=== PATIENT | male | born 2000 | race Caucasian/White ===

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

== ENCOUNTER → 2021-04-02 08:22 | Outpatient (BNVA) | payer MEDICAID, SELFPAY | PROVIDERS: PCP Family Medicine; Visit Provider Psychiatry & Neurology Psychiatry | DX: F84.0 Autistic disorder (principal); F90.2 Attention-deficit hyperactivity disorder, combined type; Z79.899 Other long term (current) drug therapy | CPT/HCPCS: 99213 ==

== ENCOUNTER 2021-05-30 06:00 | Outpatient (RCR) | payer MEDICAID, SELFPAY | END 2021-05-31 23:59 | disposition home or self-care (01) | LOC: SST 06:00 | PROVIDERS: PCP Family Medicine; Referring Provider Family Medicine; Visit Provider Family Medicine | DX: R47.9 Unspecified speech disturbances (principal) | CPT/HCPCS: 92523 ==

== ENCOUNTER → 2021-07-02 07:33 | Outpatient (BNVA) | payer MEDICAID, SELFPAY | PROVIDERS: PCP Family Medicine; Visit Provider Psychiatry & Neurology Psychiatry | DX: F84.0 Autistic disorder (principal); F90.2 Attention-deficit hyperactivity disorder, combined type | CPT/HCPCS: 99213 ==

== ENCOUNTER 2021-09-25 06:00 | Outpatient (RCR) | payer MEDICAID, SELFPAY | END 2021-09-28 23:59 | disposition home or self-care (01) | LOC: SST 06:00 | PROVIDERS: PCP Family Medicine; Referring Provider Family Medicine; Visit Provider Family Medicine | DX: R47.9 Unspecified speech disturbances (principal) | CPT/HCPCS: 92507 ==

== ENCOUNTER 2021-12-07 18:07 | Emergency (ER) | payer MEDICAID, SELFPAY ==
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
[2021-12-07 18:17] VITALS: BP 140/78; PULSE 112; RESP 18; TEMP 36.6; O2SAT 96; BMI 18.3
[2021-12-07] MEDS: bacitracin ointment Pkt 1 EACH TOPICAL (19:21)
== END 2021-12-07 19:30 | disposition home or self-care (01) ==
PROVIDERS: Emergency Provider Nurse Practitioner Family; PCP Family Medicine
DX: S90.812A Abrasion, left foot, initial encounter (principal); S90.811A Abrasion, right foot, initial encounter; X58.XXXA Exposure to other specified factors, initial encounter; F84.0 Autistic disorder; Z91.83 Wandering in diseases classified elsewhere
CPT/HCPCS: 99283

== ENCOUNTER → 2022-06-10 14:32 | Outpatient (BNVA) | payer MEDICAID, SELFPAY | PROVIDERS: PCP Family Medicine; Visit Provider Psychiatry & Neurology Psychiatry | DX: Z79.899 Other long term (current) drug therapy (principal); F84.0 Autistic disorder; F90.2 Attention-deficit hyperactivity disorder, combined type | CPT/HCPCS: 80061; 83036 ==

== ENCOUNTER → 2023-06-09 14:28 | Outpatient (BNVA) | payer MEDICAID, SELFPAY | PROVIDERS: PCP Family Medicine; Visit Provider Psychiatry & Neurology Psychiatry | DX: Z79.899 Other long term (current) drug therapy (principal) | CPT/HCPCS: 80061; 83036 ==

== ENCOUNTER → 2024-06-28 10:38 | Outpatient (BNVA) | payer OTHER, SELFPAY | PROVIDERS: PCP Family Medicine; Visit Provider Psychiatry & Neurology Psychiatry | DX: Z79.899 Other long term (current) drug therapy (principal) | CPT/HCPCS: 80061; 83036 ==

== ENCOUNTER 2024-07-14 17:05 | Emergency (ER) | payer MEDICAID, SELFPAY ==
[2024-07-14 17:07] VITALS: BP 139/81; PULSE 108; RESP 18; TEMP 36.8; O2SAT 98; BMI 19.6
--- NOTE | 2024-07-14 17:30 | XRR_ITS ---
PROCEDURE INFORMATION: Exam: XR Chest Exam date and time: 07/14/2024 5:33 PM Age: 24 years old Clinical indication: Other: Siezure; Additional info: Seizure TECHNIQUE: Imaging protocol: Radiologic exam of the chest. Views: 1 view. COMPARISON: No relevant prior studies available. FINDINGS: Lungs: Unremarkable. No consolidation. Pleural spaces: Unremarkable. No pleural effusion. No pneumothorax. Heart/Mediastinum: Unremarkable. No cardiomegaly. Bones/joints: Unremarkable. XR/XR chest 1V portable [id number] IMPRESSION: No acute findings.
--- NOTE | 2024-07-14 17:31 | W.ED.SEIZURE ---
HPI - Seizure General: Chief Complaint: Seizure Stated Complaint: seizure Time Seen by Provider: 07/14/24 17:22 History of Present Illness: HPI Narrative: Patient brought in by EMS with complaints of seizure activity. This was what appeared to be a witnessed seizure lasted about 30 seconds to a minute. Patient was walking across the room and then fell into the couch where he had convulsions for about 30 seconds to 1 minute and then was laid down to the floor where he was postictal. Patient is autistic and nonverbal but staff said he responded slower than normal. Patient does point to midshaft left forearm when asked if he has any pain. Patient does not have any history of seizures no medication changes or fevers. Patient is back to his baseline at this time. Related Data Home Medications ?Medication ?Instructions ?Recorded ?Confirmed docusate sodium 100 mg capsule 200 mg PO DAILY@0800 08/04/19 06/28/24 (Colace) dextromethorphan tannate 30 mg/5 30 mg PO DAILY PRN 10/29/22 06/28/24 mL oral suspension Previous Rx's ?Medication ?Instructions ?Recorded mirtazapine 30 mg tablet See Rx Instructions .Route 02/16/24 .COMPLEX #30 tabs olanzapine 15 mg tablet 15 mg PO BID #60 tabs 03/09/24 clonidine HCl 0.1 mg tablet See Rx Instructions .Route 03/24/24 .COMPLEX #90 tabs Allergies Allergy/AdvReac Type Severity Reaction Status Date / Time No Known Allergies Allergy Verified 06/28/24 10:18 Review of Systems General: Reports: 10 or more systems reviewed and unremarkable except in HPI and below PFSH ED PFSH: Medical History Psychiatric care Attention-deficit hyperactivity disorder, combined type Social History Smoking and tobacco/nicotine status: never used tobacco/nicotine Second hand smoke exposure: No Alcohol intake: never Physical Exam Const: COMMON NORMALS: no acute distress, average body habitus, healthy appearing, alert and well nourished HENMT: COMMON NORMALS: normocephalic, atraumatic, hearing grossly normal bilaterally, external ears normal and Normal external nose present HEAD & SCALP: normocephalic and atraumatic NOSE: Normal external nose present EXTERNAL EAR: Yes external ears normal Eye: COMMON NORMALS: Equal, round and reactive pupils present, EOMs intact bilaterally, conjunctivae normal and no scleral icterus CONJUNCTIVA: Yes conjunctivae normal PUPIL: Yes Equal, round and reactive pupils present Neck/C-Spine: COMMON NORMALS: full ROM, no lymphadenopathy, supple, no meningeal signs, no JVD and Thyroid normal THYROID: Thyroid normal Chest: COMMONS NORMALS: normal inspection of the chest and normal palpation of entire chest wall Resp: COMMON NORMALS: normal respiratory effort, No retractions, No use of accessory muscles and clear to auscultation bilaterally AUSCULTATION: clear to auscultation bilaterally Cardio: COMMON NORMALS: no JVD, regular rhythm, S1 normal heart sound present, S2 normal heart sound present, No gallops present (Cardio), No clicks present (Cardio), No murmurs present (Cardio) and No rub (Cardio); negative for regular rate (Mildly tachycardic) RATE: abnormal rate (Mildly tachycardic) RHYTHM: regular rhythm HEART SOUNDS: S1 normal heart sound present and S2 normal heart sound present GI: COMMON NORMALS: Normal to inspection, nondistended, normoactive bowel sounds present, Soft to palpation, non-tender, No hepatosplenomegaly present and no masses PALPATION: Yes Soft to palpation and Yes No hepatosplenomegaly present Extremity: NARRATIVE EXTREMITY EXAM: Patient points to the midshaft left forearm when asked if he has any pain. Neuro: SENSORIUM/ORIENTATION: Yes alert MENINGEAL SIGNS: Yes no meningeal signs Course Vital Signs: Vital signs: Vital Signs Temperature 98.3 F 07/14/24 17:07 Pulse Rate 85 07/14/24 18:53 Respiratory Rate 18 07/14/24 17:07 Blood Pressure 130/61 07/14/24 18:53 Pulse Oximetry 98 07/14/24 18:53 Oxygen Delivery Me thod Room Air 07/14/24 17:07 MDM - Seizure MDM Narrative Medical decision making narrative: Patient's lab work included CBC CMP influenza COVID RSV all essentially unremarkable, prolactin was elevated at 30.7, chest x-ray and forearm x-ray showed no acute findings. These results was discussed with patient's care workers and have to be consistent with seizure. We will for the patient to neurology for further evaluation and treatment. We will discharge patient from the ER. Medical Records Attestation: I reviewed the patient's medical records. Lab Data Attestation: I reviewed the patient's lab results. 07/14/24 18:53 07/14/24 18:53 Labs: Radiology Impressions Chest X-Ray 07/14/24 17:30 IMPRESSION: No acute findings. Forearm X-Ray 07/14/24 17:32 IMPRESSION: Nonacute finding. Laboratory Results WBC 11.88 10^3/uL (3.29-11.43) H 07/14/24 18:53 RBC 5.44 10^6/uL (3.85-5.65) 07/14/24 18:53 Hgb 15.80 g/dL (11.27-16.99) 07/14/24 18:53 Hct 47.4 % (37-53) 07/14/24 18:53 MCV 87.1 fl (82-101) 07/14/24 18:53 MCH 29.0 pg (27-33) 07/14/24 18:53 MCHC 33.3 g/dL (30-55) 07/14/24 18:53 RDW 11.8 % (12.1-15.1) L 07/14/24 18:53 Plt Count 287 10^3/cmm (157-399) 07/14/24 18:53 MPV 9.1 fL (7.4-10.4) 07/14/24 18:53 Neut % (Auto) 77.4 % 07/14/24 18:53 Lymph % (Auto) 12.1 % 07/14/24 18:53 [place] % (Auto) 9.0 % 07/14/24 18:53 Eos % (Auto) 0.8 % 07/14/24 18:53 Baso % (Auto) 0.3 % 07/14/24 18:53 Neut # (Auto) 9.19 10^3/uL (1.8-7.7) H 07/14/24 18:53 Lymph # (Auto) 1.4 10^3/uL (0.8-4.8) 07/14/24 18:53 [place] # (Auto) 1.1 10^3/uL (0.2-0.9) H 07/14/24 18:53 Eos # (Auto) 0.1 10^3/uL (0.0-0.8) 07/14/24 18:53 Baso # (Auto) 0.0 10^3/uL (0.0-0.1) 07/14/24 18:53 Nucleated RBC % (auto) 0 % 07/14/24 18:53 Nucleated RBCs # 0.0 /100WBC 07/14/24 18:53 Sodium 141 mmol/L (136-145) 07/14/24 18:53 Potassium 4.1 mmol/L (3.5-5.1) 07/14/24 18:53 Chloride 108 mmol/L (98-107) H 07/14/24 18:53 Carbon Dioxide 24 mmol/L (22-29) 07/14/24 18:53 Anion Gap 13.1 (5-19) 07/14/24 18:53 BUN 13 mg/dL (6-20) 07/14/24 18:53 Creatinine 1.0 mg/dL (0.7-1.2) 07/14/24 18:53 GFR Calculation 92.6 mL/min (90-130) 07/14/24 18:53 Glucose 82 mg/dL (65-115) 07/14/24 18:53 Calculated Osmolality 291 mOsm/kg (285-295) 07/14/24 18:53 Calcium 9.3 mg/dL (8.5-10.5) 07/14/24 18:53 Total Bilirubin 0.3 mg/dL (0.15-1.2) 07/14/24 18:53 AST 16 U/L (0-40) 07/14/24 18:53 ALT 23 U/L (0-41) 07/14/24 18:53 Alkaline Phosphatase 87 U/L (40-130) 07/14/24 18:53 Creatine Kinase 105 U/L (39-308) 07/14/24 18:53 Total Protein 6.5 g/dL (6.6-8.7) L 07/14/24 18:53 Albumin 4.5 g/dL (3.5-5.2) 07/14/24 18:53 Globulin 2.0 g/dL (1.3-4.6) 07/14/24 18:53 Prolactin 30.74 ng/mL (4.0-15.2) H 07/14/24 18:53 Coronavirus (PCR) Negative (Negative) 07/14/24 18:48 Influenza A (PCR) Negative (Negative) 07/14/24 18:48 Influenza Type B (PCR) Negative (Negative) 07/14/24 18:48 RSV (PCR) Negative (Negative) 07/14/24 18:48 All radiology interpretation(s) finalized by discharge Discharge Plan Discharge Patient Disposition: Home Clinical Impression: New onset seizure Condition: Stable Prescriptions: No Action docusate sodium [Colace] 100 mg capsule 200 mg PO DAILY@0800 dextromethorphan tannate 30 mg/5 mL suspension 30 mg PO DAILY PRN mirtazapine 30 mg tablet See Rx Instructions .ROUTE .COMPLEX Qty: 30 11RF Dose Instruction: TAKE ONE TABLET BY MOUTH EVERY DAY Rx Instructions: TAKE ONE TABLET BY MOUTH EVERY DAY olanzapine 15 mg tablet 15 mg PO BID Qty: 60 5RF clonidine HCl 0.1 mg tablet See Rx Instructions .ROUTE .COMPLEX Qty: 90 11RF Dose Instruction: TAKE ONE TABLET BY MOUTH THREE TIMES DAILY FOR ADHD Rx Instructions: TAKE ONE TABLET BY MOUTH THREE TIMES DAILY FOR ADHD Discharge Orders: Discharge ED (Routine); Ordered 07/14/24 Ordered By: Rocael Thomas Referrals: Alpesh Galloway MD [Primary Care Provider] - 1 week Patient Instructions: New-Onset Seizure in Adults (ED) Activity Restrictions/Additional Instructions: Your evaluation ER was essentially unremarkable other than an elevated prolactin. This can be sometimes linked with seizure activity. He had been referred to neurology for follow-up for further evaluation and treatment. sugar cane farm manager should be calling you within the next several business days to arrange this appointment. Otherwise follow-up with your family practice doctor within the next 7 days for further evaluation and treatment. Print Language: [place] Coding Level of Care Code ED Electronic Equipment Trades Worker for Maryuri Cooper
--- NOTE | 2024-07-14 17:32 | XRR_ITS ---
PROCEDURE INFORMATION: Exam: XR Left Forearm Exam date and time: 07/14/2024 5:33 PM Age: 24 years old Clinical indication: Injury or trauma; Fall; Blunt trauma (contusions or hematomas); Arm, lower; Left; Additional info: Fall, pain TECHNIQUE: Imaging protocol: Radiologic exam of the left forearm. Views: 2 views. COMPARISON: No relevant prior studies available. FINDINGS: Bones/joints: There is a prominent exostosis arising from the anterior distal radial diaphysis. No fracture or other acute abnormality. Visualized joint spaces are normal. Soft tissues: Normal. XR/XR forearm LT 2V [id number] IMPRESSION: Nonacute finding.
--- NOTE | 2024-07-14 17:57 | ECG_ITS ---
[facility] Date: 2024-07-14 Pat Name: Andrea Laguerre Department: Room: Gender: Male Thrill Performer: : 2000 Requested By: Rocael Thomas Order Number: [id number] Caridad MD: DANYA CORDERO Measurements Intervals [place] Rate: 81 P: 118 NM: 154 QRS: 135 QRSD: 100 T: 115 QT: 337 QTc: 392 Interpretive Statements SINUS RHYTHM WITH SINUS ARRHYTHMIA ARM LEADS REVERSED [INVERTED P AND QRS IN I] No previous ECG available for comparison Electronically Signed On 07-16-2024 19:29:03 VEIN ACCESS TECHNICIAN by DANYA CORDERO [email or web address]
[2024-07-14 18:53] VITALS: BP 130/61; PULSE 85; O2SAT 98
[2024-07-14 19:07] LABS: Basophils % 0.3 %; Eosinophils # 0.1 10^3/uL (0.0-0.8); Eosinophils % 0.8 %; Hematocrit 47.4 % (37-53); Lymphocytes # 1.4 10^3/uL (0.8-4.8); Lymphocytes % 12.1 %; Mean Corpuscular HGB Conc 33.3 g/dL (30-55); Mean Corpuscular Volume 87.1 fl (82-101); Mean Platelet Volume 9.1 fL (7.4-10.4); Monocytes # 1.1 10^3/uL (0.2-0.9); Neutrophils # 9.19 10^3/uL (1.8-7.7); Neutrophils % 77.4 %; Nucleated Red Blood Cells % 0 %; Platelet Count 287 10^3/cmm (157-399); Red Blood Count 5.44 10^6/uL (3.85-5.65); Red Cell Distribution Width 11.8 % (12.1-15.1); White Blood Count 11.88 10^3/uL (3.29-11.43)
[2024-07-14 19:29] LABS: Influenza A NEGATIVE (Negative); Influenza B NEGATIVE (Negative); Respiratory Syncytial Virus Ce NEGATIVE (Negative); SARS-CoV-2 PCR NEGATIVE (Negative)
[2024-07-14 19:38] LABS: Alanine Aminotransferase 23 U/L (0-41); Albumin Level 4.5 g/dL (3.5-5.2); Alkaline Phosphatase 87 U/L (40-130); Anion Gap 13.1 (5-19); Aspartate Amino Transferase 16 U/L (0-40); Blood Urea Nitrogen 13 mg/dL (6-20); Calcium 9.3 mg/dL (8.5-10.5); Carbon Dioxide 24 mmol/L (22-29); Chloride 108 mmol/L (98-107); Creatine Phosphokinase 105 U/L (39-308); Creatinine Clr Calc Pharmacy 118.4112; Glomerular Filtration Rate 92.6 mL/min (90-130); Glucose 82 mg/dL (65-115); Osmolality Calculated 291 mOsm/kg (285-295); Potassium 4.1 mmol/L (3.5-5.1); Prolactin 30.74 ng/mL (4.0-15.2); Sodium 141 mmol/L (136-145); Total Bilirubin 0.3 mg/dL (0.15-1.2); Total Protein 6.5 g/dL (6.6-8.7)
[2024-07-14 19:59] LABS: Bilirubin Urine Negative (Negative); Blood Urine Negative (Negative); Glucose Urine UA Negative (Normal); Ketones Urine Negative (Negative); Leukocyte Esterase Urine Negative (Negative); Nitrate Urine Negative (Negative); Protein Urine Negative (Negative); Specific Gravity, Urine 1.023 (1.005-1.030); Urine Appearance Clear (CLEAR); Urine Color Yellow (Yellow); Urobilinogen Urine 0.2 mg/dL (Negative)
[2024-07-14 20:04] LABS: Add Urine Microscopic? YES; Bacteria Urine None Seen /hpf; Hyaline Casts Urine 0.81 /lpf; RBC Urine 0-2 /hpf (0-2); Squamous Epithelial Cell Urine 0-5 /hpf (0-5); WBC Urine 0-5 /hpf (0-5)
[2024-07-14 20:31] VITALS: BP 130/79; PULSE 98; O2SAT 98
--- NOTE | 2024-07-14 22:56 | DCPLANNER ---
Message sent to Neurology for referral of new onset seizures.
== END 2024-07-14 20:33 | disposition home or self-care (01) ==
PROVIDERS: Emergency Provider Emergency Medicine; PCP Family Medicine
DX: G40.89 Other seizures (principal); Z11.52 Encounter for screening for COVID-19
CPT/HCPCS: 36415; 71045; 73090; 80053; 81001; 82550; 84146; 85025; 87637; 93005; 99285

== ENCOUNTER 2024-08-05 13:51 | Emergency (ER) | payer OTHER, MEDICAID, SELFPAY ==
[2024-08-05 13:54] VITALS: BP 127/83; PULSE 100; RESP 17; TEMP 36.9; O2SAT 96
--- NOTE | 2024-08-05 14:07 | CT_ITS ---
WS: [id number] CT HEAD NONCONTRAST HISTORY: seizure TECHNIQUE: Contiguous axial imaging performed through the brain. Bone and soft tissue windows. Sagittal and coronal reformats reviewed. All CT scans at [facility] use at least one of these dose optimization techniques: automated exposure control; mA and/or kV adjustment per patient size (includes targeted exams where dose is matched to clinical indication); or iterative reconstruction. DLP: 1131.64 mGy.cm COMPARISON: None available. No acute intracranial hemorrhage, midline shift or mass effect. No atrophy or prior infarcts or herniation. Ventricles: Normal size with no hydrocephalus. No inferior displacement of the cerebellar tonsils. Paranasal sinuses: As visualized are clear. Mastoid air cells: Well pneumatized. Calvarium and scalp: Skull is intact with no soft tissue edema or swelling. CT/CT head wo con* [id number] IMPRESSION: Negative head CT.
--- NOTE | 2024-08-05 14:13 | W.ED.SEIZURE ---
HPI - Seizure General: Chief Complaint: Seizure Stated Complaint: seizures Time Seen by Provider: 08/05/24 14:01 History of Present Illness: HPI Narrative: 24-year-old man with a history of autism who is mostly nonverbal but can answer yes and no questions appropriately who presents emergency room after having had a second possible seizure. He stays at a [facility]. Caregiver states that he heard him shaking and ran into the living room and he had about a total of 30 seconds of what appears to be a tonic-clonic type seizure. He bit his tongue. Bleeding is controlled. This is an abrasion. No big laceration. He denies any pain other than his tongue at this time. He was seen for this 1 time before about 3 weeks ago and has not been able to get in with neurology yet. Related Data Home Medications ?Medication ?Instructions ?Recorded ?Confirmed docusate sodium 100 mg capsule 200 mg PO DAILY@0800 08/04/19 08/05/24 (Colace) acetaminophen 500 mg tablet 500 mg PO Q6H 08/05/24 08/05/24 clonidine HCl 0.1 mg tablet 0.1 mg PO TID 08/05/24 08/05/24 mirtazapine 30 mg tablet 30 mg PO DAILY 08/05/24 08/05/24 olanzapine 15 mg tablet 15 mg PO BID 08/05/24 08/05/24 Previous Rx's ?Medication ?Instructions ?Recorded levetiracetam 500 mg tablet 500 mg PO BID #60 tabs 08/05/24 (Keppra) Allergies Allergy/AdvReac Type Severity Reaction Status Date / Time No Known Allergies Allergy Verified 08/05/24 10:21 Review of Systems Narrative: Constitutional symptoms: Negative except as documented in HPI. Skin symptoms: Negative except as documented in HPI. Eye symptoms: Negative except as documented in HPI. ENMT symptoms: Negative except as documented in HPI. Respiratory symptoms: Negative except as documented in HPI. Cardiovascular symptoms: Negative except as documented in HPI. Gastrointestinal symptoms: Negative except as documented in HPI. Genitourinary symptoms: Negative except as documented in HPI. Musculoskeletal symptoms: Negative except as documented in HPI. Neurologic symptoms: Negative except as documented in HPI. Psychiatric symptoms: Negative except as documented in HPI. Endocrine symptoms: Negative except as documented in HPI. [facility] ED PFSH: Medical History Psychiatric care Attention-deficit hyperactivity disorder, combined type Social History Smoking and tobacco/nicotine status: never used tobacco/nicotine Second hand smoke exposure: No Alcohol intake: never Physical Exam Narrative: EXAM NARRATIVE: General: Alert, no acute distress. Skin: Warm, dry. Head: Normocephalic, atraumatic. Neck: Supple, trachea midline. Eye: Extraocular movements are intact. Ears, nose, mouth and throat: mucosa moist. Cardiovascular: Regular, Normal peripheral perfusion. Respiratory: Lungs are clear to auscultation, respirations are non-labored, breath sounds are equal, Symmetrical chest wall expansion. Gastrointestinal: Soft, Nontender, Non distended Musculoskeletal: Normal ROM, no deformity. Neurological: Alert and oriented to his caregiver, No focal neurological deficit observed. Psychiatric: Cooperative, answers yes and no appropriately to questions if asked by the caregiver. Course Vital Signs: Vital signs: Vital Signs Temperature 98.4 F 08/05/24 13:54 Pulse Rate 96 08/05/24 16:34 Respiratory Rate 18 08/05/24 16:34 Blood Pressure 112/75 08/05/24 16:34 Pulse Oximetry 97 08/05/24 16:34 Oxygen Delivery Me thod Room Air 08/05/24 13:54 MDM - Seizure MDM Narrative Medical decision making narrative: Medical decision making: Differential diagnosis for this patient with a complaint of seizure like activity would include but not be limited to, and based on the above HPI, review of systems and physical exam: seizure, DT's, alcohol withdrawal, brain malignancy, pseudo-seizure, syncope. Orders placed to evaluate differential diagnosis based on the above differential, HPI and physical exam CT head: No acute intracranial process. no intracranial hemorrhage, no evidence of infarct. no evidence of acute fracture.This was reviewed and interpreted by myself the ER physician. Lab Review: Laboratory results were reviewed and interpreted by myself the emergency room physician No leukocytosis. No anemia. No renal failure. Lactate is very elevated at 14.5 but a ABG done later does not show any acidosis at this time. His blood alcohol level was 22 I think this may be some sort of lab error as he has no access to any alcohol. I reviewed the patient's medical record. Reexamination: Patient remained stable. No increased work of breathing. No altered mental status. No focal motor deficits. Consultation: I spoke with Dr. Gonzales who is on-call for the neurology service who recommends IV loading dose of Keppra and 500 mg twice daily. He will speak with his office staff and try to get the patient into the clinic sooner. Assessment and plan: Recurrent seizure ?Loaded Keppra here and starting p.o. tomorrow. - Discharged home - Discussed plan with patient. Answered any questions. - Evaluation and treatment of this problem were appropriate in the emergency setting. Lab Data 08/05/24 13:40 08/05/24 13:40 Labs: Radiology Impressions Head CT 08/05/24 14:07 IMPRESSION: Negative head CT. Laboratory Results WBC 6.99 10^3/uL (3.29-11.43) 08/05/24 13:40 RBC 5.91 10^6/uL (3.85-5.65) H 08/05/24 13:40 Hgb 17.00 g/dL (11.27-16.99) H 08/05/24 13:40 Hct 51.9 % (37-53) 08/05/24 13:40 MCV 87.8 fl (82-101) 08/05/24 13:40 MCH 28.8 pg (27-33) 08/05/24 13:40 MCHC 32.8 g/dL (30-55) 08/05/24 13:40 RDW 11.9 % (12.1-15.1) L 08/05/24 13:40 Plt Count 377 10^3/cmm (157-399) 08/05/24 13:40 MPV 9.5 fL (7.4-10.4) 08/05/24 13:40 Neut % (Auto) 56.7 % 08/05/24 13:40 Lymph % (Auto) 32.2 % 08/05/24 13:40 Cooper % (Auto) 9.4 % 08/05/24 13:40 Eos % (Auto) 0.7 % 08/05/24 13:40 Baso % (Auto) 0.6 % 08/05/24 13:40 Neut # (Auto) 3.96 10^3/uL (1.8-7.7) 08/05/24 13:40 Lymph # (Auto) 2.3 10^3/uL (0.8-4.8) 08/05/24 13:40 Cooper # (Auto) 0.7 10^3/uL (0.2-0.9) 08/05/24 13:40 Eos # (Auto) 0.1 10^3/uL (0.0-0.8) 08/05/24 13:40 Baso # (Auto) 0.0 10^3/uL (0.0-0.1) 08/05/24 13:40 Nucleated RBC % (auto) 0 % 08/05/24 13:40 Nucleated RBCs # 0.0 /100WBC 08/05/24 13:40 Specimen Type Arterial 08/05/24 15:55 Sample Site Radial, left 08/05/24 15:55 ABG pH 7.41 (7.35-7.45) 08/05/24 15:55 ABG pCO2 37.3 mmHg (35-45) 08/05/24 15:55 ABG pO2 93.2 mmHg (80.0-100.0) 08/05/24 15:55 ABG PO2/FiO2 Ratio 443 08/05/24 15:55 ABG HCO3 23.4 mmol/L (22-26) 08/05/24 15:55 ABG O2 Saturation 97.9 08/05/24 15:55 ABG Base Excess -1.0 mmol/L (-2.0-2.0) 08/05/24 15:55 Aristeo Test Pos 08/05/24 15:55 A-a O2 Gradient 0.9 mmHg (5-10) L 08/05/24 15:55 Hematocrit 50.1 % (42-52) 08/05/24 15:55 Hgb O2 Saturation 96.3 % (95-100) 08/05/24 15:55 Carboxyhemoglobin 0.6 %THgb (0.4-20.1) 08/05/24 15:55 Methemoglobin 1.0 % (0.4-1.5) 08/05/24 15:55 Total Hemoglobin 16.3 g/dL (14-18) 08/05/24 15:55 Sodium 138.0 mmol/L (131-143) 08/05/24 15:55 Potassium 3.5 mmol/L (3.5-5.0) 08/05/24 15:55 Glucose 100.0 mg/dL (70-115) 08/05/24 15:55 Ionized Calcium 1.2 mmol/L (1.1-1.4) 08/05/24 15:55 O2 Delivery Device Room air 08/05/24 15:55 FiO2 21.0 % 08/05/24 15:55 Semi Conductor Assembler ID [place] 08/05/24 15:55 Sodium 142 mmol/L (136-145) 08/05/24 13:40 Potassium 4.4 mmol/L (3.5-5.1) 08/05/24 13:40 Chloride 100 mmol/L (98-107) 08/05/24 13:40 Carbon Dioxide 14 mmol/L (22-29) L 08/05/24 13:40 Anion Gap 32.4 (5-19) H 08/05/24 13:40 BUN 11 mg/dL (6-20) 08/05/24 13:40 Creatinine 1.1 mg/dL (0.7-1.2) 08/05/24 13:40 GFR Calculation 83.0 mL/min (90-130) L 08/05/24 13:40 Glucose 91 mg/dL (65-115) 08/05/24 13:40 Calculated Osmolality 293 mOsm/kg (285-295) 08/05/24 13:40 Lactic Acid 14.6 mmol/L (0.5-2.2) H* 08/05/24 13:40 Calcium 9.9 mg/dL (8.5-10.5) 08/05/24 13:40 Total Bilirubin 0.4 mg/dL (0.15-1.2) 08/05/24 13:40 AST 17 U/L (0-40) 08/05/24 13:40 ALT 20 U/L (0-41) 08/05/24 13:40 Alkaline Phosphatase 128 U/L (40-130) 08/05/24 13:40 Total Protein 7.4 g/dL (6.6-8.7) 08/05/24 13:40 Albumin 4.8 g/dL (3.5-5.2) 08/05/24 13:40 Globulin 2.6 g/dL (1.3-4.6) 08/05/24 13:40 Urine Color Yellow (Yellow) 08/05/24 14:34 Urine Appearance Clear (CLEAR) 08/05/24 14:34 Urine pH 6.0 (5-7) 08/05/24 14:34 Ur Specific [place] 1.015 (1.005-1.030) 08/05/24 14:34 Urine Protein Trace (Negative) A 08/05/24 14:34 Urine Glucose (UA) Negative (Normal) 08/05/24 14:34 Urine Ketones Trace (Negative) 08/05/24 14:34 Urine Blood Negative (Negative) 08/05/24 14:34 Urine Nitrate Negative (Negative) 08/05/24 14:34 Urine Bilirubin Negative (Negative) 08/05/24 14:34 Urine Urobilinogen 0.2 mg/dL (Negative) 08/05/24 14:34 Ur Leukocyte Esterase Negative (Negative) 08/05/24 14:34 Urine RBC 0-2 /hpf (0-2) 08/05/24 14:34 Urine WBC 0-5 /hpf (0-5) 08/05/24 14:34 Ur Squamous Epith Cells 0-5 /hpf (0-5) 08/05/24 14:34 Urine Bacteria None seen /hpf (NONE) 08/05/24 14:34 Hyaline Casts 0.40 /lpf 08/05/24 14:34 Urine Opiates Screen Negative ng/mL (Negative) 08/05/24 14:34 Ur Barbiturates Screen Negative ng/mL (Negative) 08/05/24 14:34 Ur Phencyclidine Scrn Negative ng/mL (Negative) 08/05/24 14:34 Ur Amphetamines Screen Negative ng/mL (Negative) 08/05/24 14:34 U Benzodiazepines Scrn Negative ng/mL (Negative) 08/05/24 14:34 Urine Cocaine Screen Negative ng/mL (Negative) 08/05/24 14:34 U Marijuana (THC) Screen Negative ng/mL (Negative) 08/05/24 14:34 Ethyl Alcohol 22 mg/dL (0-10) H 08/05/24 13:40 All radiology interpretation(s) finalized by discharge Discharge Plan Discharge Patient Disposition: Home Clinical Impression: New onset seizure Condition: Stable Prescriptions: New levetiracetam [Keppra] 500 mg tablet 500 mg PO BID Qty: 60 1RF No Action docusate sodium [Colace] 100 mg capsule 200 mg PO DAILY@0800 acetaminophen 500 mg tablet 500 mg PO Q6H clonidine HCl 0.1 mg tablet 0.1 mg PO TID Rx Instructions: TAKE ONE TABLET BY MOUTH THREE TIMES DAILY FOR ADHD mirtazapine 30 mg tablet 30 mg PO DAILY Rx Instructions: TAKE ONE TABLET BY MOUTH EVERY DAY olanzapine 15 mg tablet 15 mg PO BID Rx Instructions: TAKE ONE TABLET BY MOUTH TWICE DAILY Discharge Orders: Discharge ED (Routine); Ordered 08/05/24 Ordered By: Nicole Farrar Referrals: Nadeen Castaneda MD [Physician] - (Please call either Dr. Castaneda's office for a sooner appointment or Dr. Gonzales's office if you prefer. They will see you soon most likely.) Flo Gonzales MD [Physician] - (Please call first thing on Thursday to see if neurology has any earlier appointments. Dr. Gonzales is talking with his staff who will try to get you set up for an appointment sooner) Alpesh Galloway MD [Primary Care Provider] - Discharge Diet: Usual diet Discharge Activity: Increase activity as tolerated Patient Instructions: Recurrent Seizures in Adults (ED), Opioid Safety, Pain Management Activity Restrictions/Additional Instructions: Thank you for choosing [facility] for your healthcare needs today. Please realize this is an emergency room and that we are providing you with a medical screening exam and this may not be complete and all inclusive of all the testing and or work up that you may need to determine your ailment or severity of your illness. You have been screened and evaluated and felt safe for discharge. Health conditions do change or evolve sometimes and as such it is important that you follow up with your Primary Doctor to be re checked, 3-5 days is a general good time frame for follow up. 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
[2024-08-05 14:14] VITALS: BP 127/83; PULSE 81; RESP 18; O2SAT 95
[2024-08-05 14:16] LABS: Basophils % 0.6 %; Eosinophils # 0.1 10^3/uL (0.0-0.8); Eosinophils % 0.7 %; Hematocrit 51.9 % (37-53); Lymphocytes # 2.3 10^3/uL (0.8-4.8); Lymphocytes % 32.2 %; Mean Corpuscular HGB Conc 32.8 g/dL (30-55); Mean Corpuscular Hemoglobin 28.8 pg (27-33); Mean Corpuscular Volume 87.8 fl (82-101); Mean Platelet Volume 9.5 fL (7.4-10.4); Monocytes # 0.7 10^3/uL (0.2-0.9); Monocytes % 9.4 %; Neutrophils # 3.96 10^3/uL (1.8-7.7); Neutrophils % 56.7 %; Nucleated Red Blood Cells % 0 %; Platelet Count 377 10^3/cmm (157-399); Red Blood Count 5.91 10^6/uL (3.85-5.65); Red Cell Distribution Width 11.9 % (12.1-15.1); White Blood Count 6.99 10^3/uL (3.29-11.43)
[2024-08-05 14:29] LABS: Alanine Aminotransferase 20 U/L (0-41); Albumin Level 4.8 g/dL (3.5-5.2); Alcohol Level 22 mg/dL (0-10); Alkaline Phosphatase 128 U/L (40-130); Anion Gap 32.4 (5-19); Aspartate Amino Transferase 17 U/L (0-40); Blood Urea Nitrogen 11 mg/dL (6-20); Calcium 9.9 mg/dL (8.5-10.5); Carbon Dioxide 14 mmol/L (22-29); Chloride 100 mmol/L (98-107); Creatinine Clr Calc Pharmacy 87.1103; Globulin 2.6 g/dL (1.3-4.6); Glucose 91 mg/dL (65-115); Osmolality Calculated 293 mOsm/kg (285-295); Potassium 4.4 mmol/L (3.5-5.1); Sodium 142 mmol/L (136-145); Total Bilirubin 0.4 mg/dL (0.15-1.2); Total Protein 7.4 g/dL (6.6-8.7)
[2024-08-05 14:36] LABS: Lactic Sepsis W/Reflex 14.6 mmol/L (0.5-2.2)
[2024-08-05 14:49] LABS: Bilirubin Urine Negative (Negative); Blood Urine Negative (Negative); Glucose Urine UA Negative (Normal); Ketones Urine Trace (Negative); Leukocyte Esterase Urine Negative (Negative); Nitrate Urine Negative (Negative); Protein Urine Trace (Negative); Specific Gravity, Urine 1.015 (1.005-1.030); Urine Appearance Clear (CLEAR); Urine Color Yellow (Yellow); Urobilinogen Urine 0.2 mg/dL (Negative)
[2024-08-05 14:52] LABS: Add Urine Microscopic? YES; Bacteria Urine None Seen /hpf; RBC Urine 0-2 /hpf (0-2); Squamous Epithelial Cell Urine 0-5 /hpf (0-5); WBC Urine 0-5 /hpf (0-5)
[2024-08-05 14:56] LABS: Amphetamines Screen Urine Negative (Negative); Barbiturates Screen Urine Negative (Negative); Benzodiazepines Screen Urine Negative (Negative); Cocaine Screen Urine Negative (Negative); Opiate Screen Urine Negative (Negative); PCP Screen Urine Negative (Negative); THC Screen Urine Negative (Negative)
[2024-08-05] MEDS: levETIRAcetam 1,000 MG/100 ML PREMIX 400 MG IV (14:56)
[2024-08-05 16:00] VITALS: BP 112/75; PULSE 76; RESP 18; O2SAT 96
[2024-08-05 16:03] LABS: Reflex Lactate Order REFLEX LACTIC ORDERD
[2024-08-05 16:05] LABS: ABG PCO2 37.3 mmHg (35-45); ABG PH Result 7.41 (7.35-7.45); Alveolar-Arterial Oxygen Gradi 0.9 mmHg (5-10); Arterial Blood Gas Hematocrit 50.1 % (42-52); Blood Gas Allen Test Pos; Blood Gas Operator Identificat WALCI; Blood Gas Sample Site Radial, left; Blood Gas Sample Type Arterial; Carboxyhemoglobin 0.6 %THgb (0.4-20.1); HCO3 ABG 23.4 mmol/L (22-26); HGB O2 Sat 96.3 % (95-100); Ionized Calcium Level - ABG 1.2 mmol/L (1.1-1.4); Oxygen Device ROOM AIR; Oxygen Saturation ABG 97.9; PO2 ABG 93.2 mmHg (80.0-100.0); PO2 FiO2 Ratio Arterial Blood 443; Potassium Level - ABG 3.5 mmol/L (3.5-5.0); Total Hemoglobin 16.3 g/dL (14-18)
[2024-08-05 16:34] VITALS: BP 112/75; PULSE 96; RESP 18; O2SAT 97
== END 2024-08-05 16:35 | disposition home or self-care (01) ==
PROVIDERS: Family Medicine; Emergency Provider Emergency Medicine; PCP Family Medicine
DX: R56.9 Unspecified convulsions (principal)
CPT/HCPCS: 36600; 70450; 80051; 80053; 80306; 80307; 81001; 82330; 82805; 83605; 85025; 96374; 99284; J1953

== ENCOUNTER → 2024-08-29 08:40 | Outpatient (BNVA) | payer MEDICAID, SELFPAY | PROVIDERS: PCP Family Medicine; Referring Provider Emergency Medicine; Visit Provider Psychiatry & Neurology Neurology | DX: G40.909 Epilepsy, unspecified, not intractable, without status epilepticus (principal); E55.9 Vitamin D deficiency, unspecified | CPT/HCPCS: 36415; 80177; 82306; 99203 ==

== ENCOUNTER → 2024-10-04 09:27 | Outpatient (BNVA) | payer MEDICAID, SELFPAY | PROVIDERS: PCP Family Medicine; Referring Provider Psychiatry & Neurology Neurology; Visit Provider Psychiatry & Neurology Neurology | DX: G40.909 Epilepsy, unspecified, not intractable, without status epilepticus (principal) | CPT/HCPCS: 95816 ==

== ENCOUNTER → 2024-10-26 13:42 | Outpatient (BNVA) | payer MEDICAID, SELFPAY | PROVIDERS: PCP Family Medicine; Visit Provider Psychiatry & Neurology Neurology | DX: G40.909 Epilepsy, unspecified, not intractable, without status epilepticus (principal) | CPT/HCPCS: 99212 ==